=== PATIENT | male | born 1975 | race Caucasian/White ===

== ENCOUNTER 2024-06-10 07:43 | Outpatient (CLI) | payer OTHER, SELFPAY ==
--- OUTSIDE RECORDS SUMMARY | 2024-06-10 07:48 | XMS_ITS | Clinical Summary ---
Author Organization [facility] [employer] [facility] Address [place], [place] [address] Care Team Providers Care Assistant Professor Of Communication Name Role Phone Chapis Rodríguez NP Primary Care Provider Allergies Active Allergy Reactions Criticality Noted Date Comments Ceftriaxone Anaphylaxis High 02/27/2023 Cholestatic liver enzyme elevation Penicillins Rash 02/08/2015 Medications Medication Sig Dispensed Refills Start Date End Date Status acetaminophen (TYLENOL EXTRA STRGTH) 500 mg tablet Take 1,000 mg by mouth. 02/12/2023 Active diphenhydrAMINE-aceta minophen 25-500 mg (TYLENOL PM) 25-500 mg tablet Take 1 Tablet by mouth at bedtime. Active aspirin-acetaminophen -caffeine (EXCEDRIN EX STR) 250-250-65 mg Take 1 Tablet by mouth every 6 hours if needed. Active mirtazapine (REMERON) 15 mg tabletIndications:Ins omnia, idiopathic Take 1 Tablet (15 mg) by mouth at bedtime. 90 Tablet 3 05/19/2023 Active escitalopram oxalate (LEXAPRO) 20 mg tabletIndications:Anx iety TAKE 1 TABLET(20 MG) BY MOUTH EVERY MORNING 90 Tablet 1 03/01/2024 Active Active Problems Problem Noted Date Diagnosed Date Elevated liver enzymes 03/06/2023 Streptococcal arthritis of right elbow Abnormal liver function test 03/06/2023 History of open reduction an d internal fixation (ORIF) procedure 02/09/2023 Septic bursitis of elbow, right 02/09/2023 Arthrosis of right acromioclavicular joint 09/12 Tendonitis of long head of biceps brachii of rig ht shoulder 09/12/2022 Rotator cuff arthropathy of right shoulder 04/08 Depression, recurrent 11/05/2020 Anxiety 11/05/2020 Cervical spinal stenosis 10/21/2018 DDD (degenerative disc disease), lumbar 09/30/20 18 Neck pain 09/30/2018 Spinal stenosis of lumbar region 09/30/2018 Community acquired pneumonia of right middle lob e of lung 10/13/2017 Encounters Date Type Department Care Team Description 05/24/2024 Transcribe Orders [facility] [address] [place] [address] Yoel Lujan MD 04/28/2024 Transcribe Orders [facility] - [address] [address] Raymond Jenkins PA from Last 3 Months Immunizations Name Administration Dates Next Due DTaP 04/12/2007 Hepatitis B, Unspecified 03/03/2002 Tdap 04/12/2007 Family History Medical History Relation Name Comments Cancer-prostate Father Good Health Mother Cancer-prostate Other cousin Cancer-prostate Paternal Grandfather Cancer-prostate Paternal Uncle Relation Name Status Comments Father Alive Mother Alive Other cousin Alive Paternal Grandfather Paternal Uncle Alive Social History Tobacco Use Types Packs/Day Years Used Date Smoking Tobacco: Former Smokeless Tobacco: Current Tobacco Cessation:Ready to Q uit: Not Asked; Counseling Given: Not Answered Comments:Nicotine pouches Alcohol Use Standard Drinks/Week Comments Not Currently 0 (1 standard drink = 0.6 oz pur e alcohol) sober 12 years PHQ-2 Answer Date Recorded PHQ-2 TOTAL SCORE 0 12/18/2023 Social Connections Answer Date Recorded Frequency of Communication with Friends and Fami ly Not on file 04/13/2023 Financial Resource Strain Answer Date R ecorded Difficulty of Paying Living Expenses 3 04/08/2022 Difficulty of Paying Living Expenses Not on file 04/08/2022 Food Insecurity Answer Date Recorded Worried About Running Out of Food in the Last Ye ar 1 04/08/2022 Transportation Needs Answer Date Record ed Lack of Transportation (Medical) 1 04/08/2022 Housing Stability Answer Date Recorded Unable to Pay for Housing in the Last Year 1 04/08/2022 Sex and Gender Information Value Date Recorded Sex Assigned at Not on file Gender Identity Not on file Sexual Orientation Not on file Obstetrics History Last Filed Vital Signs Vital Sign Reading Time Taken Comments Blood Pressure 116/82 12/18/2023 8:32 AM ORNAMENTAL PLASTER STICKER Pulse 86 12/18/2023 8:32 AM ORNAMENTAL PLASTER STICKER Temperature 36.8 ??C (98.2 ??F) 03/17/2023 2:26 PM CD T Respiratory Rate 14 12/18/2023 8:32 AM ORNAMENTAL PLASTER STICKER Oxygen Saturation 98% 03/17/2023 2:26 PM CDT Inhaled Oxygen Concentration - - Weight 82.6 kg (182 lb) 12/18/2023 8:32 AM ORNAMENTAL PLASTER STICKER Height 182.9 cm (6') 03/17/2023 2:26 PM CDT Body Mass Index 24.68 03/17/2023 2:26 PM CDT Plan of Treatment Upcoming Encounters Date Type Department Care Team (Late st Contact Info) Description 06/10/2024 8:40 AM CDT Office Visit [facility] [address] [place] [address] Yoel Lujan MD [address] [place] [address] Health Maintenance Due Date Last Done Comments HIV for age 15-65 1990 Tetanus booster 04/12/2017 04/12/2007 Colonoscopy through age 75 2020 COVID-19 vaccine series ( season) 2023 BMI (ht and wt on same day) for age 18+ 08/12/2023 08/12/2022, 07/24/2022, 07/17/2022, Additional history exists Influenza for age 9-49 07/03/2024 Depression screening for age 12+ 12/18/2024 12/18/2023, 04/08/2022, 11/05/2020, Additional history exists Lipids for age 45-75 07/24/2027 07/24/2022 Tdap Completed 04/12/2007 Hepatitis C screening for age 18-79 Completed 07/24/2022 Pneumococcal series for age 6-64 Aged Out No longer eligible based on patient's age to complete this topic Procedures Procedure Name Priority Date/Time Associated Diagnosis Comments ANTI HCV Routine 07/24/2022 11:56 AM CDT Need for hepatitis C screening test LIPID PANEL W REFLEX MEASURED LDL Routine 07/24/2022 11:56 AM CDT Lipid screening from Last 3 Months or Most Recently Relevant to Health Maintenance Results * (ABNORMAL) LIPID PANEL W REFLEX MEASURED LDL (07/24/2022 11:56 AM CDT) CHOLESTEROL,TOTAL 188 100 - 199 mg/dL 07/24/2022 12:37 PM CDT [facility] TRIGLYCERIDES 144 <150 mg/dL 07/24/2022 12:37 PM T [facility] HDL CHOLESTEROL 34(L) >40 mg/dL 12:37 PM T [facility] NON-HDL CHOLESTEROL 154(H) <145 mg/dl 07/24/2022 12:37 PM T [facility] CHOL/HDL RATIO 5.53(H) <4.50 07/24/2022 12:37 PM T [facility] LDL CHOLESTEROL 125 <=130 mg/dL 07/24/2022 12:[address] [facility] VLDL CHOLESTEROL 29 <=30 mg/dL 07/24/2022 12:37 PM T [facility] PROVIDER ORDERED STATUS RANDOM 07/24/2022 12:37 PM T [facility] Blood BLOOD SPECIMEN / Unknown Venipuncture / Unknown 07/24/2022 11:56 AM CDT 07/24/2022 11:58 AM CDT Chapis Rodríguez NP CHEMISTRY [facility] [address] [place] [address] * ANTI HCV (07/24/2022 11:56 AM CDT) HEPATITIS C ANTIBODY Non-React ana Non-React ana 07/25/2022 6:28 PM CDT [facility] Comment:Antibodies to HCV no t detected; does not exclude the possibility of exposure to HCV. Blood BLOOD SPECIMEN / Unknown Venipuncture / Unknown 07/24/2022 11:56 AM CDT 07/24/2022 11:58 AM CDT Chapis Rodríguez NP SEND OUTS [facility] [address] [place] [address], from Last 3 Months or Most Recently Relevant to Health Maintenance Care Teams Assistant Professor Of Communication Relationship Specialty Start Date End Date Chapis Rodríguez NP [address] [place] [address] PCP - General Nurse Practitioner 08/10/18
--- OUTSIDE RECORDS SUMMARY | 2024-06-10 07:48 | XMS_ITS | Referral Summary ---
Author Organization [facility] Address [address] [place] [address] Care Team Providers Care Cargo Inspector Name Role Phone Elsewhere, Pcp Primary Care Provider Unavailabl e Source Comments Patient records contain information from all sites at [facility]. For routine questions regarding patient records, call [phone] during business hours, M-F 8:00 AM - 5:00 PM Central Time. Record requests for emergency care only can be directed to [phone] at any time.[facility] Allergies Active Allergy Reactions Criticality Noted Date Comments Ceftriaxone Other (see comments) 02/27/2023 Cholestatic liver enzyme elevation Penicillins Rash 10/06/2004 Medications Medication Sig Dispensed Refills Start Date End Date Status escitalopram (LEXAPRO) 20 mg tablet Take 20 mg by mouth daily. Active mirtazapine (REMERON) 7.5 mg tablet Take 7.5 mg by mouth at bedtime. Active diphenhydrAMINE-acetam inophen (TYLENOL PM) 25-500 mg per tablet Take 1 tablet by mouth at bedtime. Active aspirin-acetaminophen- caffeine (EXCEDRIN MIGRAINE) 250-250-65 mg per tablet Take 1 tablet by mouth every 6 (six) hours as needed for pain or headaches. Active acetaminophen (TYLENOL) 500 mg tablet Take 2 tablets (1,000 mg total) by mouth 4 (four) times a day. 02/12/2023 Active calcium citrate-vitamin D3 (CITRACAL+D) 315 mg-5 mcg (200 Unit) per tablet Take 2 tablets by mouth 2 (two) times a day. 02/12/2023 Active acetaminophen-codeine (TYLENOL #3) 300-30 mg per tablet TAKE 1-2 TABLETS BY MOUTH EVERY 4-6 HOURS NEEDED 11/20/2022 Active ofloxacin (OCUFLOX) 0.3 % ophthalmic solution 11/18/2022 Active Active Problems Problem Noted Date Diagnosed Date Abnormal Liver Function Test 02/27/2023 Other Specified Anemias 02/11/2023 Hyponatremia 02/10/2023 Bursitis Olecranon Infected Right 02/10/2023 Arthritis Pyogenic Elbow 02/09/2023 Alcoholism Personal History 12/07/2009 Depression Major One Episode Full Remission 03/2010 Overview (03/24/2017): Depression Major NOS Resolved Problems Problem Noted Date Diagnosed Date Resolved Date Preoperative Exam 02/10/2023 02/16/2023 Immunizations Name Administration Dates Next Due DTaP ([employer], [employer]) 04/12/2007 HepB, Unspecified 03/03/2002 Tdap 04/12/2007 Social History Tobacco Use Types Packs/Day Years Used Date Smoking Tobacco: Former Cigarettes Q uit: 11/02/2020 Smokeless Tobacco: Never Tobacco Cessation:Counseling Given: Not Answered Alcohol Use Standard Drinks/Week Comments Not Currently 0 (1 standard drink = 0.6 oz pur e alcohol) Nutrition Answer Date Recorded Nutrition: EVOO Fat Source Unknown 12/31 Nutrition: Servings of Fruits/Vegetables per Day Not on file 12/31/2020 Dental Answer Date Recorded Dental: Regular Dentist Unknown 01/01/20 21 Sex and Gender Information Value Date Recorded Sex Assigned at Not on file Gender Identity Not on file Sexual Orientation Not on file Last Filed Vital Signs Vital Sign Reading Time Taken Comments Blood Pressure 148/88 03/03/2023 12:55 PM CDT Pulse 70 03/03/2023 12:55 PM CDT Temperature 36.5 ??C (97.7 ??F) 03/03/2023 12:55 PM C DT Respiratory Rate 16 03/03/2023 12:55 PM CDT Oxygen Saturation 97% 03/03/2023 12:55 PM CDT Inhaled Oxygen Concentration - - Weight 81.6 kg (180 lb) 02/27/2023 11:32 PM CDT Height 185.4 cm (6' 1) 02/27/2023 11:32 PM CDT Body Mass Index 23.75 02/27/2023 11:32 PM CDT Plan of Treatment Not on file Medical Devices Explanted Type Area Green Marketer Device Identifier Shelf Expiration Date Model / Serial / Lot Acumed-Screw Chriss 3.5 X 18m - [place] [id number] Implanted:Qty: 2 on 10/09/2004 Explanted:Qty: 2 on 02/10/2023 by Cecilia Jaime M.D. at [facility] [employer] pins/screws/ rods [employer] Description:Device Manufactu rer - [employer] Device Status Text - HARDWARE-[id number].Removed from right elbow. Acumed-Congruent Screw 3.5 X 37.5mm - [place] [id number] Implanted:Qty: 1 on 10/09/2004 Explanted:Qty: 1 on 02/10/2023 by Cecilia Jaime M.D. at [facility] [employer] pins/screws/ rods [employer] Description:Device Manufactu rer - [employer] Device Status Text - HARDWARE-[id number].Removed from right elbow. Acumed-Screw Chriss 3.5 X 20m - [place] [id number] Implanted:Qty: 1 on 10/09/2004 Explanted:Qty: 1 on 02/10/2023 by Cecilia Jaime M.D. at [facility] [employer] pins/screws/ rods [employer] Description:Device Manufactu rer - [employer] Device Status Text - HARDWARE-[id number].Removed from right elbow. Acumed-Screw Chriss 3.5 X 16m - [place] [id number] Implanted:Qty: 3 on 10/09/2004 Explanted:Qty: 3 on 02/10/2023 by Cecilia Jaime M.D. at [facility] [employer] pins/screws/ rods [employer] Description:Device Manufactu rer - [employer] Device Status Text - HARDWARE-60029.Removed from right elbow. Sm Frag Ti-Screw Cor 3.5x20 - [place] [id number] Implanted:Qty: 1 on 10/09/2004 Explanted:Qty: 1 on 02/10/2023 by Cecilia Jaime M.D. at [facility] [employer] pins/screws/ rods [employer] Description:Device Manufactu rer - [employer]. Device Status Text - HARDWARE-[id number].Removed from right elbow. Acumed-Screw Chriss 2.7 X 16m - [place] [id number] Implanted:Qty: 1 on 10/09/2004 Explanted:Qty: 1 on 02/10/2023 by Cecilia Jaime M.D. at [facility] [employer] pins/screws/ rods [employer] Description:Device Manufactu rer - [employer] Device Status Text - HARDWARE- 72933. Removed from right elbow. Sm Frag Ti-Screw Cor 3.5x26 - [place] [id number] Implanted:Qty: 1 on 10/09/2004 Explanted:Qty: 1 on 02/10/2023 by Cecilia Jaime M.D. at [facility] [employer] pins/screws/ rods [employer] Description:Device Manufactu rer - [employer]. Device Status Text - HARDWARE-[id number].Removed from right elbow. Acumed-Plate Elbow Olecranon Rt Ex Lng - [place] [id number] Implanted:Qty: 1 on 10/09/2004 Explanted:Qty: 1 on 02/10/2023 by Cecilia Jaime M.D. at [facility] [employer] pins/screws/ rods [employer] Description:Device Manufactu rer - [employer] Device Status Text - HARDWARE-[id number].Removed from right elbow. Acumed-Screw Chriss 3.5 X 30m - [place] [id number] Implanted:Qty: 1 on 10/09/2004 Explanted:Qty: 1 on 02/10/2023 by Cecilia Jaime M.D. at [facility] [employer] pins/screws/ rods [employer] Description:Device Manufactu rer - [employer] Device Status Text - HARDWARE-[id number].Removed from right elbow. Acumed-Congruent Screw 3.5 X 27.5m - [place] [id number] Implanted:Qty: 1 on 10/09/2004 Explanted:Qty: 1 on 02/10/2023 by Cecilia Jaime M.D. at [facility] [employer] pins/screws/ rods [employer] Description:Device Manufactu rer - [employer] Device Status Text - HARDWARE- 95543. Removed from right elbow. Acumed-Screw Chriss 3.5 X 55m - [place] [id number] Implanted:Qty: 1 on 10/09/2004 Explanted:Qty: 1 on 02/10/2023 by Cecilia Jaime M.D. at [facility] [employer] pins/screws/ rods [employer] Description:Device Manufactu rer - [employer] Device Status Text - HARDWARE-[id number].Removed from right elbow. Acumed-Screw Chriss 3.5 X 14m - [place] [id number] Implanted:Qty: 2 on 10/09/2004 Explanted:Qty: 2 on 02/10/2023 by Cecilia Jaime M.D. at [facility] [employer] pins/screws/ rods [employer] Description:Device Manufactu rer - [employer] Device Status Text - HARDWARE- 38098. Removed from right elbow. Procedures Procedure Name Priority Date/Time Associated Diagnosis Comments COMPREHENSIVE METABOLIC PANEL, S/P Routine 03/03/2023 6:53 AM CDT HIV-1/-2 AG AND AB SCREEN, PLASMA Routine 03/02/2023 7:46 AM CDT LIPID PANEL, S Routine 05/03/2012 7:25 AM CDT from Last 3 Months or Most Recently Relevant to Health Maintenance Results * (ABNORMAL) Comprehensive Metabolic Panel (03/03/2023 6:53 AM CDT) [facility] Potassium, S 4.4 3.6 - 5.2 mmol/L 03/03/2023 8:16 AM CDT DTL Sodium, S 139 135 - 145 mmol/L 03/03/2023 8:16 AM CDT DTL Chloride, S 103 98 - 107 mmol/L 03/03/2023 8:16 AM CDT DTL Bicarbonate, S 23 22 - 29 mmol/L 03/03/2023 8:16 AM CDT DTL Anion Gap 13 7 - 15 03/03/2023 8:16 AM CDT DTL BUN (Blood Urea Nitrogen), S 11 8 - 24 mg/dL 03/03/2023 8:16 AM CDT DTL Creatinine 0.81 0.74 - 1.35 mg/dL 03/03/2023 8:16 AM CDT DTL Estimated GFR (eGFR) >90 >=60 mL/min/BS A 03/03/2023 8:16 AM CDT DTL Comment: Estimated GFR calculated using the 2020 CKD_EPI creatinine equation. Calcium, Total, S 9.3 8.6 - 10.0 mg/dL 03/03/2023 8:16 AM CDT DTL Glucose, S 99 70 - 140 mg/dL 03/03/2023 8:16 AM CDT DTL Protein, Total, S 6.4 6.3 - 7.9 g/dL 03/03/2023 8:16 AM CDT DTL Albumin, S 4.0 3.5 - 5.0 g/dL 03/03/2023 8:16 AM CDT DTL Aspartate Aminotransferase (AST), S 83(H) 8 - 48 U/L 03/03/2023 8:16 AM CDT DTL Alkaline Phosphatase, S 199(H) 40 - 129 U/L 03/03/2023 8:16 AM CDT DTL Alanine Aminotransferase (ALT), S 192(H) 7 - 55 U/L 03/03/2023 8:16 AM CDT DTL Bilirubin, Total, S 3.4(H) <=1.2 mg/dL 03/03/2023 8:16 AM CDT DTL Blood (Blood, Venous) 03/03/2023 6:53 AM CDT 03/03/2023 7:57 AM CDT Paulina Elizondo M.D. LAB BLOOD ADD-ON [facility] [address] [place] [address], [facility] [[email or web address]] [facility] [address] [place] [address] * HIV-1/-2 Ag and Ab Screen, Plasma (03/02/2023 7:46 AM CDT) HIV-1/-2 Ag and Ab Screen, P Negative Negative 03/02/2023 1:34 PM CDT [facility] Comment: Negative result does not rule out HIV infection. If exposure to HIV infection occurred <14 days ago, contact the laboratory to request addition of HIV-1 RNA detection / quantification test (HIVQN). Blood (Blood, Venous) 03/02/2023 7:46 AM CDT 03/02/2023 11:23 AM CDT Paulina Elizondo M.D. LAB MICROBIOLOGY - B LOOD ORDERABLES [facility] [address] [place] [address] [facility] [address] [place] [address] * (ABNORMAL) Lipid Panel (05/03/2012 7:25 AM CDT) Calculated LDL 111(H) 0 - 100 MGDL [facility]ART Total Cholesterol/HDL Ratio 5.34(H) 2.20 - 4.40 POWERCHART Cholesterol, Total 155 0 - 200 MGDL [facility]ART Comment:Reference value 0-11 months: Not Established Triglycerides 74 41 - 150 MGDL POWERCHART HX HDL 29(L) 40 - 60 MGDL POWERCHART HXLDL/HDL 4 POWERCHART Blood 05/03/2012 7:25 AM CDT Gomez Major M.D. LAB BLOOD ADD-ON P[facility]ART from Last 3 Months or Most Recently Relevant to Health Maintenance Advance Directives For more information, please contact: [phone] * Full Code (Latest Code Status on File) Date Activated Date Inactivated Comments 02/28/2023 12:14 AM 03/03/2023 6:16 PM Question Answer Comments Full Code: Discussed * Full Code Date Activated Date Inactivated Comments 02/09/2023 7:33 PM 02/12/2023 7:16 PM Question Answer Comments Full Code: Discussed Care Teams Cargo Inspector Relationship Specialty Start Date End Date Elsewhere, Pcp PCP - General Internal Medicine 02/09/23
--- OUTSIDE RECORDS SUMMARY | 2024-06-10 07:48 | XMS_ITS ---
Author Organization [facility] Address [address] [place] [address] Care Team Providers Care Chair Finisher Name Role Phone Unavailable Unavailable Unavailable Surgery Details Not on file Complications Check Surgery Details section. Procedure Estimated Blood Loss Check Surgery Details section. Procedure Findings Check Surgery Details section. Procedure Specimens Taken Check Surgery Details section.
--- OUTSIDE RECORDS SUMMARY | 2024-06-10 07:48 | XMS_ITS | Clinical Summary ---
Author Organization [facility] Address [address] [place] [address] Care Team Providers Care Flocculator Operator Name Role Phone Elsewhere, Pcp Primary Care Provider Unavailabl e Source Comments Patient records contain information from all sites at [facility]. For routine questions regarding patient records, call [phone] during business hours, M-F 8:00 AM - 5:00 PM Central Time. Record requests for emergency care only can be directed to [phone] at any time.[facility] Allergies Active Allergy Reactions Criticality Noted Date [...] 02/27/2023 11:32 PM CDT Plan of Treatment Health Maintenance Due Date Last Done Comments CT Colonography 1975 Cologuard 1975 Colonoscopy 1975 Colorectal Cancer Screening 1975 Depression Monitoring (PHQ-9) 1975 FIT 1975 Pneumococcal vaccine (0-64 y ears) (1 of 2 - PCV) 1981 Hepatitis B Vaccines (2 of 3 - 19+ 3-dose series) 03/31/2002 03/03/2002 DTaP,Tdap,and Td Vaccines (3 - Td or Tdap) 04/12/2017 04/12/2007, 04/12/2007 COVID-19 Vaccine (1 - 2022-2 4 season) 2023 Influenza Vaccine (#1) 2024 Fasting Glucose for Diabetes Screening 12/18/2026 12/18/2023, 05/19/2023, 03/17/2023, Additional history exists Lipid (Cholesterol) Screening 07/24/2027 07/24/2022, 05/03/2012 HIV Screening Completed 03/02/2023 Medical Devices Explanted Type Area Editor Book Device Identifier Shelf Expiration Date Model / Serial / Lot Acumed-Screw Chriss 3.5 X 18m - Stark [id number] Implanted:Qty: 2 on 10/09/2004 Explanted:Qty: 2 on 02/10/2023 by Cecilia Jaime M.D. at [facility] Hardware e.g. pins/screws/ rods [employer]ed [employer] Description:Device Manufactu [employer]. Device Status Text - HARDWARE-22056.Removed from right elbow. Acumed-Congruent Screw 3.5 X 37.5mm - Stark [id number] Implanted:Qty: 1 on 10/09/2004 Explanted:Qty: 1 on 02/10/2023 by Cecilia Jaime M.D. at [facility] Hardware e.g. pins/screws/ rods [employer] Description:Device Manufactu [employer]. Device Status Text - HARDWARE-32187.Removed from right elbow. Acumed-Screw Chriss 3.5 X 20m - Stark [id number] Implanted:Qty: 1 on 10/09/2004 Explanted:Qty: 1 on 02/10/2023 by Cecilia Jaime M.D. at [facility] Hardware e.g. pins/screws/ rods [employer] Description:Device Manufactu rer - [employer] Device Status Text - HARDWARE-96551.Removed from right elbow. Acumed-Screw Chriss 3.5 X 16m - Stark [id number] Implanted:Qty: 3 on 10/09/2004 Explanted:Qty: 3 on 02/10/2023 by Cecilia Jaime M.D. at [facility] Hardware e.g. pins/screws/ rods [employer] Description:Device Manufactu rer - [employer] Device Status Text - HARDWARE-00413.Removed from right elbow. Sm Frag Ti-Screw Cor 3.5x20 - Stark [id number] Implanted:Qty: 1 on 10/09/2004 Explanted:Qty: 1 on 02/10/2023 by Cecilia Jaime M.D. at [facility] Hardware e.g. pins/screws/ rods [employer]ynthes Description:Device Manufactu rer - [employer]. Device Status Text - HARDWARE-76472.Removed from right elbow. Acumed-Screw Chriss 2.7 X 16m - Stark [id number] Implanted:Qty: 1 on 10/09/2004 Explanted:Qty: 1 on 02/10/2023 by Cecilia Jaime M.D. at [facility] Hardware e.g. pins/screws/ rods [employer] Description:Device Manufactu rer - [employer] Device Status Text - HARDWARE- 71540. Removed from right elbow. Sm Frag Ti-Screw Cor 3.5x26 - Stark [id number] Implanted:Qty: 1 on 10/09/2004 Explanted:Qty: 1 on 02/10/2023 by Cecilia Jaime M.D. at [facility] Hardware e.g. pins/screws/ rods [employer]s Description:Device Manufactu rer - [employer]. Device Status Text - HARDWARE-84071.Removed from right elbow. Acumed-Plate Elbow Olecranon Rt Ex Lng - Stark [id number] Implanted:Qty: 1 on 10/09/2004 Explanted:Qty: 1 on 02/10/2023 by Cecilia Jaime M.D. at [facility] Hardware e.g. pins/screws/ rods [employer] Description:Device Manufactu rer - [employer] Device Status Text - HARDWARE-84245.Removed from right elbow. Acumed-Screw Chriss 3.5 X 30m - Stark [id number] Implanted:Qty: 1 on 10/09/2004 Explanted:Qty: 1 on 02/10/2023 by Cecilia Jaime M.D. at [facility] Hardware e.g. pins/screws/ rods [employer] Description:Device Manufactu rer - [employer] Device Status Text - HARDWARE-36744.Removed from right elbow. Acumed-Congruent Screw 3.5 X 27.5m - Stark [id number] Implanted:Qty: 1 on 10/09/2004 Explanted:Qty: 1 on 02/10/2023 by Cecilia Jaime M.D. at [facility] Hardware e.g. pins/screws/ rods [employer] Description:Device Manufactu rer - [employer] Device Status Text - HARDWARE- 98203. Removed from right elbow. Acumed-Screw Chriss 3.5 X 55m - Stark [id number] Implanted:Qty: 1 on 10/09/2004 Explanted:Qty: 1 on 02/10/2023 by Cecilia Jaime M.D. at [facility] Hardware e.g. pins/screws/ rods [employer] Description:Device Manufactu rer - [employer] Device Status Text - HARDWARE-80874.Removed from right elbow. Acumed-Screw Chriss 3.5 X 14m - Stark [id number] Implanted:Qty: 2 on 10/09/2004 Explanted:Qty: 2 on 02/10/2023 by Cecilia Jaime M.D. at [facility] Hardware e.g. pins/screws/ rods [employer] Description:Device Manufactu rer - [employer] Device Status Text - HARDWARE- 46875. Removed from right elbow. Procedures Procedure Name Priority Date/Time Associated Diagnosis Comments COMPREHENSIVE METABOLIC PANEL, S/P Routine 03/03/2023 6:53 AM CDT HIV-1/-2 AG AND AB SCREEN, PLASMA Routine 03/02/2023 7:46 AM CDT LIPID PANEL, S Routine 05/03/2012 7:25 AM CDT from Last 3 Months or Most Recently Relevant to Health Maintenance Results * (ABNORMAL) Comprehensive Metabolic Panel (03/03/2023 6:53 AM CDT) [facility] Potassium, S 4.4 3.6 - 5.2 mmol/L [...] CDT Paulina Elizondo M.D. LAB BLOOD ADD-ON Performing Organization Address City/[facility] Co de Phone Number [facility] [address] [place] [address], [facility] [address] [place] [address] * HIV-1/-2 Ag and Ab Screen, Plasma (03/02/2023 7:46 AM CDT) [facility] HIV-1/-2 Ag and Ab Screen, P Negative Negative 03/02/2023 1:34 PM CDT [facility] Comment: Negative result does not rule out HIV infection. If exposure to HIV infection occurred <14 days ago, contact the laboratory to request addition of HIV-1 RNA detection / quantification test (HIVQN). Blood (Blood, Venous) 03/02/2023 7:46 AM CDT 03/02/2023 11:23 AM CDT Paulina Elizondo M.D. LAB MICROBIOLOGY - B LOOD ORDERABLES Performing Organization Address City/[facility]/ZIP Co de Phone Number [facility] [address] [place] [address] [facility] [address] [place] [address] * (ABNORMAL) Lipid Panel (05/03/2012 7:25 AM CDT) [facility] Calculated LDL 111(H) 0 - 100 MGDL [...] Advance Directives For more information, please contact: [phone] * Full Code (Latest Code Status on File) Date Activated Date Inactivated Comments 02/28/2023 12:14 AM 03/03/2023 6:16 PM Question Answer Comments Full Code: Discussed * Full Code Date Activated Date Inactivated Comments 02/09/2023 7:33 PM 02/12/2023 7:16 PM Question Answer Comments Full Code: Discussed Care Teams Flocculator Operator Relationship Specialty Start Date End Date Elsewhere, Pcp PCP - General Internal Medicine 02/09/23
--- OUTSIDE RECORDS SUMMARY | 2024-06-10 07:49 | XMS_ITS | Continuity of Care Document ---
Author Organization [facility] Address [address] [place] [address] Phone Care Team Providers Care Financial Reserve Clerk Name Role Phone Raymond Boothe Unavailable Unavailable Allergies, Adverse Reactions, Alerts Substance Reaction Status Criticality Penicillins Active No Information Medications Medication Instructions Dosage Effective Dates (start - stop) Status Comments celecoxib 200 mg capsule take 1 capsule by oral route 2 times every day as needed 200 MG - Active LEXAPRO (unknown strength) Not Available - Active Procedures Procedure Date Physician Telephone Evaluation 5-10 Min Office/Outpatient Visit,New, Mod 2023 Office/Outpatient Visit,Est, Mod 2019 Office/Outpatient Visit,Est, Mod 2019 Office/Outpatient Visit,New, Mod 2017 Advance Directives Directive Yes / No Effective Date File Name No Information Encounters Encounter Description Practice Location Reason(s) For Visit Diagnoses Date Provider Providers Copied on Encounter Physician Telephone Evaluation 5-10 Min [facility], [address], [facility] [place], [id number], [place] tel:[phone] [facility] [place] [facility] [place] No Information Gregory Andrade. [facility], [address], [place], [id number], [place]. tel:[phone] Referring Provider: Chapis Dennis, [employer] [address], [address]. tel:[phone] Office/Outpat ient Visit,New, Mod [facility], [address], [place], [place], [id number], [place] tel:[phone] [facility] Spinal stenosis, cervical regionOther spondylosis, lumbar region Gregory Andrade. [facility], [address], [place], [place], [id number], [place]. tel:[phone] Referring Provider: Chapis Dennis, [address], [address]. tel:[phone] Office/Outpat ient Visit,Est, Mod [facility], [address], [place], [place], [id number], [place] tel:[phone] [facility] Other spondylosis, lumbar regionOther spondylosis, cervical region Gregory Andrade. [facility], [address], [place], [place], [id number], [place]. tel:[phone] Referring Provider: Chapis Dennis, [address], [address]. tel:[phone] Office/Outpat ient Visit,Est, Mod [facility], [address], [place], [id number], [place] tel:[phone] [facility] Other spondylosis, cervical regionOther spondylosis, lumbar region Gregory Navarrete [facility], [address], [place], [place], [id number], [place]. tel:[phone] Referring Provider: Chapis Dennis, [address], [address]. tel:[phone] Office/Outpat ient Visit,New, Mod [facility], [address], [place], [id number], [place] tel:[phone] [facility] Other spondylosis, lumbar regionOther spondylosis, cervical region Gregory Navarrete [facility], [address], [place], [place], [id number], [place]. tel:[phone] Referring Provider: Chapis Dennis, [address], [address]. tel:[phone] Family History Family Member Type Diagnosis Age At Onset Father Problem (finding) Diabetes mellitus Father Problem (finding) Cancer, unknown type Payers Payer name Insurance type Covered libertarian ID Authoriza timeera(s) [facility] [id number] Social History Type Description Quantity Date Captured Comments Sex Male Smoking Status No Information Chief Complaint And Reason For Visit No Information Reason For Referral Reason For Referral No Information History Of Present Illness Encounter Date Complaint History Of Prese nt Illness No Information Functional Status Date Functional Assessmen t No Information Instructions Date Instruction Additional Infor mation No Information Assessments Type Assessment Date No Information Patient Care Teams Name Effective Dates (start - stop) Status Members No Information
--- OUTSIDE RECORDS SUMMARY | 2024-06-10 07:49 | XMS_ITS | Clinical Summary ---
[facility] Address [address] [address] Care Team Providers Care Chief Security Officer Name Role Phone Unavailable Primary Care Provider Unavailabl e Source Comments You are receiving this document as you are listed as the primary care provider,follow-up provider, or the patient has been referred to you for consultation.This is in compliance with the Medicare and[facility] EHR Incentive Program,which states Providers who transition their patient to another setting of careor provider of care or refers their patient to another provider of care shouldprovide summary care record for each transition of care or referral. [employer] Allergies Active Allergy Reactions Criticality Noted Date Comments Penicillins Hives High 02/22/2021 Medications Medication Sig Dispensed Refills Start Date End Date Status escitalopram (LEXAPRO) 10 MG tablet Take 10 mg by mouth daily. 02/06/2021 Active Social History Tobacco Use Types Packs/Day Years Used Date Smoking Tobacco: Never Assessed Sex and Gender Information Value Date Recorded Sex Assigned at Not on file Gender Identity Not on file Sexual Orientation Not on file Last Filed Vital Signs Vital Sign Reading Time Taken Comments Blood Pressure - - Pulse - - Temperature - - Respiratory Rate - - Oxygen Saturation - - Inhaled Oxygen Concentration - - Weight 79.8 kg (176 lb) 02/22/2021 9:48 AM CDT p t reported Height 185.4 cm (6' 1) 02/22/2021 9:48 AM CDT p t reported Body Mass Index 23.22 02/22/2021 9:48 AM CDT Plan of Treatment Health Maintenance Due Date Last Done Comments Colon Cancer Screening Plan Due 1975 Hep C Screening (Preventive Services) 1975 HIV Screening (Preventive Services) 1991 Adult Preventive Visit 1993 HepB (1) 1994 Cholesterol 2010 DTaP/Tdap/Td (3 - Tdap) 04/12/2017 04/12/20 07, 04/12/2007 COVID-19 Vaccine (1 - 2022-2 4 season) 2023 Influenza (#1) 2024 Zoster/Shingles (1 of 2) 2025 HepA Aged Out No longer eligi ble based on patient's age to complete this topic Hib Aged Out No longer eligi ble based on patient's age to complete this topic IPV (Polio) Aged Out No longer eligi ble based on patient's age to complete this topic MCV4 Aged Out No longer eligi ble based on patient's age to complete this topic Pneumococcal Aged Out No longer eligi ble based on patient's age to complete this topic Ander Hendrix Personal/Family Self [address] [place] [address]
== END 2024-06-10 07:44 | disposition home or self-care (01) ==
LOC: INJ CL 07:45
PROVIDERS: PCP Nurse Practitioner Family; Visit Provider Family Medicine
DX: M54.16 Radiculopathy, lumbar region (principal); M51.26 Other intervertebral disc displacement, lumbar region
CPT/HCPCS: 64483; J1100; Q9966